=== PATIENT | female | born 1985 | race Caucasian/White ===

== ENCOUNTER 2019-07-29 18:09 | Emergency (ER) | payer SELFPAY ==
[~2019-07-29] VITALS: Ht 180.3 cm; Wt 127.0 kg
[2019-07-29 18:33] VITALS: BP 134/85
--- NOTE | 2019-07-29 18:53 | NUR ---
PT PRESENTED WITH C/O PAIN SWELLING OF THE L HAND RADIATING TO L ARM AND PAIN L ARM PIT X 1 WEEK, ALSO ABRASION TO RIGHT HEEL X 1.5 WEEKS. MONITORS APPLIED, SIDERAIL SUP X2, CALL LIGHT WITHIN REACH
[2019-07-29] MEDS ORDERED: METF500T17 PO (18:56)
[2019-07-29] MEDS ORDERED: ALPR0.25 PO (18:56)
[2019-07-29] MEDS ORDERED: GABA-827 PO (18:56)
[2019-07-29] MEDS ORDERED: HYDROcodone/APAP 5/325 TABLET ONE (19:08)
[2019-07-29] MEDS ORDERED: CEFAZOLIN 1,000 MG ONE (19:09)
[2019-07-29] MEDS ORDERED: LIDOCAINE-MPF 1%, 5ML ONE (19:09)
--- NOTE | 2019-07-29 19:21 | NUR ---
PT MEDICATED GA MAR
[2019-07-29] MEDS ORDERED: HYDROcodone/APAP 5/325 TABLET PO ONE (19:30)
[2019-07-29] MEDS ORDERED: LIDOCAINE 1%, 10ML INFIL ONE (19:30)
[2019-07-29] MEDS ORDERED: CEFAZOLIN 1,000 MG IM ONE (19:30)
--- NOTE | 2019-07-29 19:47 | NUR ---
DENTAL EQUIPMENT REPAIRER AT BEDSIDE TO APPLY DRSG
[2019-07-29] MEDS ORDERED: NEOSPORIN OINT. PKT 1 PACKET ONE (19:50)
== END 2019-07-29 20:09 | disposition home or self-care (01) ==
LOC: ED 19:04
DX: L03.012 Cellulitis of left finger (principal); F17.200 Nicotine dependence, unspecified, uncomplicated; Z88.1 Allergy status to other antibiotic agents; Z88.6 Allergy status to analgesic agent; Z88.5 Allergy status to narcotic agent
CPT/HCPCS: 10060; 96372; 99283; J0690

== ENCOUNTER 2019-08-24 11:39 | Emergency (ER) | payer SELFPAY ==
[~2019-08-24 11:39] MED LIST: ALPR0.25 PO; GABA-827 PO; METF500T17 PO
--- NOTE | 2019-08-24 13:57 | NUR ---
PER NOTE IN COMMENTS, PT CALLED X5 NO ANSWER
== END 2019-08-24 14:29 | disposition left against medical advice (07) ==
LOC: ED 14:20
DX: R07.9 Chest pain, unspecified (principal); Z53.21 Procedure and treatment not carried out due to patient leaving prior to being seen by health care provider

== ENCOUNTER 2019-09-03 15:29 | Emergency (ER) | payer OTHER ==
[~2019-09-03] VITALS: Ht 180.3 cm; Wt 119.2 kg
--- NOTE | 2019-09-03 15:51 | NUR ---
friend: [employer] [phone]
--- NOTE | 2019-09-03 16:23 | NUR ---
PATIENT COMING IN WITH CHIEF COMPLAINT OF "I'M JUST REALLY STRUGGLING MENTAL HEALTH AGGARWAL". PATIENT STATES THAT SHE MOVED TO [place] IN AND HAS BEEN OFF HER ANXIETY MEDICATIONS SINCE THEN AND SYMPTOMS HAVE GOTTEN WORSE. PATIENT STATES "I RESORTED TO USING METH AND THE H, AND SOMETIMES MARIJUANA. I ALSO DRINK EVERY DAY. IT'S HARD NOT TO WITH THE CASINOS". WHEN ASKED TO CLARIFY WHAT "H" IS, PATIENT STATES SHE USES HEROIN SOMETIMES. WHEN ASKED ABOUT MEDICAL HX, PATIENT STATES " I HAVE SPLEEN PROBLEMS, I HAVE TWO SPLEENS. I THINK I HAVE LIVER FAILURE, SOMETHING IS WRONG WITH MY KIDNEYS. I HAVE DIABETES, AND HEP C". PATIENT STATES HX OF "ANXIETY, DEPRESSION, BIPOLAR DISORDER, MULTIPLE PERSONALITY DISORDER, OCD, AND SCHIZOPHRENIA". PATIENT DENIES SI/HI. STATES "I JUST NEED TO GO BACK ON MY MEDS". TWO PATIENT BELONGINGS BAGS AND PATIENT'S PURSE PLACED IN LOCKED SAFE KEEPING WITH PATIENT LABELS ON. PATIENT REFUSES TO TAKE PANTS OFF TO PUT WITH BELONGINGS, STATES "I WILL ONLY TAKE THEM OFF IF THE DOCTOR ASKS ME, AND IF THEY'RE IN THE ROOM". PATIENT GIVEN WARM BLANKET, IN GOWN ASIDE FROM PANTS.
--- NOTE | 2019-09-03 16:29 | NUR ---
PATIENT STATES "I WANT TO KNOW IF YOU GUYS CAN DO A TEST ON ME, AND TEST WHAT DRUGS ARE ON ME". ATTEMPTED TO COLLECT URINE, PATIENT STATES "I CAN'T GO BECAUSE OF THE ANXIETY"
--- NOTE | 2019-09-03 16:37 | NUR ---
CATTLE DEHORNER TO ROOM
[2019-09-03] MEDS ORDERED: LORazepam 1MG TABLET ONE (16:48)
--- NOTE | 2019-09-03 16:54 | NUR ---
PATIENT MEDICATED PER EMAR, TOELRATED WELL. DENIES NEEDS AT THIS TIME.
[2019-09-03] MEDS ORDERED: LORazepam 1MG TABLET PO ONE (17:00)
--- NOTE | 2019-09-03 17:13 | NUR ---
SUPERVISOR HIDE HOUSE TO ROOM
--- NOTE | 2019-09-03 17:42 | NUR ---
PATIENT PROVIDED WITH SECOND URINE CUP, INSTRUCTED ON HOW TO CLEAN AREA AND OBTAIN CLEAN CATCH SPECIMEN
--- NOTE | 2019-09-03 17:49 | NUR ---
WHEN GOING IN TO COLLECT URINE, PATIENT STATES "I JUST DON'T THINK I CAN GO. I WANT TO SEE THE DOCTOR".
[2019-09-03 17:58] VITALS: BP 129/90
--- NOTE | 2019-09-03 17:59 | NUR ---
lab called and needs to re-draw pt
[2019-09-03 18:09] LABS: ANION GAP 10 mmol/L (5-15); CALCIUM 9.4 mg/dL (8.5-10.1); CHLORIDE 107 mmol/L (98-107)
[2019-09-03 18:11] LABS: SALICYLATE LEVEL < 1.7 mg/dL (2.8-20.0)
[2019-09-03 18:12] LABS: ALANINE AMINOTRANSFERASE 81 U/L (12-78); ALKALINE PHOSPHATASE 74 U/L (45-117); BILIRUBIN,TOTAL 0.6 mg/dL (0.2-1.0); CREATININE 0.73 mg/dL (0.55-1.02); TOTAL PROTEIN 8.2 g/dL (6.4-8.2)
[2019-09-03 18:44] LABS: BASOPHILS # (AUTO) 0.04 x10^3/uL (0-0.1); BASOPHILS % (AUTO) 1 % (0-1); EOSINOPHILS # (AUTO) 0.17 x10^3/uL (0-0.4); EOSINOPHILS % (AUTO) 2 % (1-7); LYMPHOCYTES # (AUTO) 2.87 x10^3/uL (1-3.4); LYMPHOCYTES % (AUTO) 31 % (22-44); MD NO; MEAN CORPUSCULAR HEMOGLOBIN 30.6 pg (27.0-34.8); MEAN CORPUSCULAR HGB CONC 33.5 g/dL (32.4-35.8); MEAN CORPUSCULAR VOLUME 91.3 fL (80-100); MEAN PLATELET VOLUME 8.5 fL (7.4-10.4); MONOCYTES # (AUTO) 0.74 x10^3/uL (0.2-0.8); MONOCYTES % (AUTO) 8 % (2-9); NEUTROPHILS # (AUTO) 5.39 x10^3/uL (1.8-6.8); NEUTROPHILS % (AUTO) 59 % (42-75); PLATELET COUNT 361 x10^3/uL (130-400); RED BLOOD COUNT 4.73 x10^6/uL (3.82-5.3); RED CELL DISTRIBUTION WIDTH 12.9 % (9.6-15.2)
--- NOTE | 2019-09-03 19:03 | NUR ---
BEDSIDE REPORT RECEIVED FROM RENATA SIM. CARE ASSUMED.
--- NOTE | 2019-09-03 19:23 | NUR ---
Patient/Caregiver given discharge instructions and they have confirmed that they understand the instructions. Patient ambulatory with steady gait.
--- NOTE | 2019-09-03 19:23 | NUR ---
PT HAS D/C ORDERS. THREE LABELLED BAGS OF BELONGINGS GIVEN TO PT.
== END 2019-09-03 19:27 | disposition home or self-care (01) ==
LOC: ED 17:42
DX: F41.1 Generalized anxiety disorder (principal); F42.8 Other obsessive-compulsive disorder; F20.9 Schizophrenia, unspecified
CPT/HCPCS: 36415; 80053; 80307; 84703; 85025; 99283

== ENCOUNTER 2019-09-11 02:43 | Emergency (ER) | payer SELFPAY ==
[~2019-09-11] VITALS: Ht 180.3 cm; Wt 117.0 kg
--- NOTE | 2019-09-11 02:59 | NUR ---
Patient has pain in the left armpit and flank which radiates to LLQ x4.5 hours. She has felt feverish. Patient is nauseous and vomited twice today. Patient states her hand has been changing colors, even in a warm house. Patient denies swelling or lesions. Patient appears anxious and slightly agitated. Respirations even and unlabored.
[2019-09-11 03:31] LABS: BASOPHILS # (AUTO) 0.03 x10^3/uL (0-0.1); BASOPHILS % (AUTO) 0 % (0-1); EOSINOPHILS # (AUTO) 0.14 x10^3/uL (0-0.4); EOSINOPHILS % (AUTO) 1 % (1-7); LYMPHOCYTES # (AUTO) 2.34 x10^3/uL (1-3.4); LYMPHOCYTES % (AUTO) 23 % (22-44); MD NO; MEAN CORPUSCULAR VOLUME 88.2 fL (80-100); MEAN PLATELET VOLUME 8.2 fL (7.4-10.4); MONOCYTES # (AUTO) 0.96 x10^3/uL (0.2-0.8); MONOCYTES % (AUTO) 10 % (2-9); NEUTROPHILS # (AUTO) 6.52 x10^3/uL (1.8-6.8); NEUTROPHILS % (AUTO) 65 % (42-75); PLATELET COUNT 289 x10^3/uL (130-400); RED BLOOD COUNT 4.83 x10^6/uL (3.82-5.3); RED CELL DISTRIBUTION WIDTH 13.1 % (9.6-15.2)
[2019-09-11 03:42] LABS: ALANINE AMINOTRANSFERASE 109 U/L (12-78); ALBUMIN 4.1 g/dL (3.4-5.0); ANION GAP 11 mmol/L (5-15); CHLORIDE 106 mmol/L (98-107); CREATININE 0.69 mg/dL (0.55-1.02)
[2019-09-11 03:45] LABS: ALKALINE PHOSPHATASE 83 U/L (45-117); BILIRUBIN,TOTAL 1.5 mg/dL (0.2-1.0); TOTAL PROTEIN 8.4 g/dL (6.4-8.2)
[2019-09-11] MEDS ORDERED: DICYCLOMINE 20 MG TABLET PO ONE (04:00)
[2019-09-11] MEDS ORDERED: ONDANSETRON ODT 4 MG PO ONE (04:00)
[2019-09-11] MEDS ORDERED: ONDANSETRON ODT 4 MG ONE (04:01)
[2019-09-11] MEDS ORDERED: DICYCLOMINE 20 MG TABLET ONE (04:02)
[2019-09-11 04:06] LABS: CULTURE INDICATED? YES; HCG UR SG 1.031 (1.003-1.030); MICROSCOPIC INDICATED
[2019-09-11 04:16] LABS: AMPHETAMINE SCREEN, URINE Positive (Negative); BARBITURATE SCREEN, URINE Negative (Negative); BENZODIAZEPINE SCREEN, URINE Negative (Negative); CANNABINOID SCREEN, URINE Positive (Negative); COCAINE SCREEN, URINE Positive (Negative); METHADONE SCREEN, URINE Negative (Negative); OPIATE SCREEN, URINE Negative (Negative)
[2019-09-11] MEDS ORDERED: MAALOX/HYOSCYAMINE/LIDOCAINE 45 ML BTL ONE (04:25)
[2019-09-11 04:28] VITALS: BP 124/62
[2019-09-11] MEDS ORDERED: MAALOX/HYOSCYAMINE/LIDOCAINE 45 ML BTL PO ONE (04:30)
--- NOTE | 2019-09-11 04:33 | NUR ---
Medication administered per nov. Discharge instructions given to Pt. All questions and concerns addressed. Patient ambulatory with a steady gait. Belongings with patient.
== END 2019-09-11 04:37 ==
LOC: ED 03:28
DX: K29.00 Acute gastritis without bleeding (principal); F10.129 Alcohol abuse with intoxication, unspecified; F12.129 Cannabis abuse with intoxication, unspecified; F15.129 Other stimulant abuse with intoxication, unspecified; F17.200 Nicotine dependence, unspecified, uncomplicated; Z72.9 Problem related to lifestyle, unspecified; Z91.14 Patient's other noncompliance with medication regimen; Z63.8 Other specified problems related to primary support group
CPT/HCPCS: 36415; 80053; 80307; 81001; 81025; 83690; 85025; 87086; 99284; Q0162

== ENCOUNTER 2019-09-13 06:28 | Emergency (ER) | payer OTHER ==
[~2019-09-13] VITALS: Ht 180.3 cm; Wt 120.5 kg
[2019-09-13 06:32] VITALS: BP 177/83
--- NOTE | 2019-09-13 06:48 | NUR ---
RECEIVED REPORT FROM ALEJANDRO. PT UPRIGHT ON GURNEY AWAKE & CALM, RESPONDS TO STAFF QUESTIONS BUT FREQ RAMBLES OFF TOPIC, NAD, COMFORT MEASURES PROVIDED, CALL LIGHT WITHIN REACH.
[2019-09-13] MEDS ORDERED: LORazepam 1MG TABLET PO ONE (07:30)
--- NOTE | 2019-09-13 07:41 | NUR ---
PT REFUSING LABS AFER MULT ATTEMPTS & DEMANDING "WATER, COFFEE & PSYCH MEDS RIGHT NOW"- PA SHARMILA AWARE, PT DEMANDING TO BE PLACED ON MEDICAL HOLD "BECAUSE I KNOW MY RIGHTS, I WANT A PHONE IN HERE RIGHT NOW SO I CAN CALL THE FEDERAL AUTHORITIES TO REPORT THIS HOSPITAL", PT WOULD NOT STATE HER COMPLAINTS EXCEPT THAT WE "NEED TO X-RAY MY FOOT & I'M IN PAIN FROM THE LAST TIME YOU GUYS ROSAURA BLOOD, I HAVE BRUISES ALL OVER MY ARM FROM IT.", NO BRUISING NOTED TO BUE & PT OFTEN AMBULATING STEADILY IN ROOM. PT REFUSED TO COOPERATE WITH STAFF AND REFUSED TO LEAVE WHEN DC'D BY PA, PT ESCORTED TO EXIT BY SECURITY STATING "YOU GUYS BETTER CALL [employer] BECAUSE I'M GOING TO BUST EVERY WINDOW OUT IN THE PARKING LOT!"
== END 2019-09-13 07:50 | disposition home or self-care (01) ==
LOC: ED 07:39
DX: F43.9 Reaction to severe stress, unspecified (principal); F15.90 Other stimulant use, unspecified, uncomplicated; F12.10 Cannabis abuse, uncomplicated; F14.90 Cocaine use, unspecified, uncomplicated; Z72.89 Other problems related to lifestyle; Z72.9 Problem related to lifestyle, unspecified
CPT/HCPCS: 99281

== ENCOUNTER 2019-11-21 20:45 | Emergency (ER) | payer SELFPAY ==
[~2019-11-21] VITALS: Ht 180.3 cm; Wt 113.0 kg
[2019-11-21 20:48] VITALS: BP 146/84
--- NOTE | 2019-11-21 21:03 | NUR ---
UPON ENTERING ROOM PT STATES SHE IS VERY UPSET. PT STATES "THIS IS RIDICULOUS THAT YOU DON'T HAVE PHONES IN THE ROOM. IT IS MY RIGHT TO CALL MY EMERGENCY CONTACT." PT ASSURED SHE CAN USE THE PHONE AT THE NURSES STATION. PT STATES "NO I NEED ONE IN MY ROOM." PT EDUCATED THAT THERE ARE NO PHONES IN ANY OF THE ROOMS. PT DECLINES TO ANSWER ANY CLINICAL OR ASSESSMENT QUESTIONS AND SITS ON BED REFUSING TO TALK TO NURSE.
--- NOTE | 2019-11-21 21:58 | NUR ---
PT REFUSED LAB DRAW AT THIS TIME. LAB NOTIFIED AND ANOTHER TECH TO TRY TO DRAW.
== END 2019-11-21 22:15 | disposition left against medical advice (07) ==
LOC: ED 22:05
DX: M79.662 Pain in left lower leg (principal); E11.9 Type 2 diabetes mellitus without complications
CPT/HCPCS: 99281

== ENCOUNTER 2019-11-22 00:32 | Emergency (ER) | payer OTHER ==
[~2019-11-22] VITALS: Ht 180.3 cm; Wt 112.9 kg
[2019-11-22 00:35] VITALS: BP 132/71
[2019-11-22] MEDS ORDERED: NEOSPORIN OINT. PKT 1 PACKET ONE (00:59)
[2019-11-22] MEDS ORDERED: HYDROcodone/APAP 5/325 TABLET ONE (00:59)
[2019-11-22] MEDS ORDERED: BACITRACIN OINT 500U/GM, 28GM TP ONE (01:00)
[2019-11-22] MEDS ORDERED: HYDROcodone/APAP 5/325 TABLET PO ONE (01:00)
--- NOTE | 2019-11-22 04:49 | NUR ---
ERGONOMIST: SEE PAPER CHARTING FOR DOWNTIME.
== END 2019-11-22 04:50 ==
LOC: ED 00:43
DX: M79.671 Pain in right foot (principal); E66.01 Morbid (severe) obesity due to excess calories; E11.40 Type 2 diabetes mellitus with diabetic neuropathy, unspecified; L03.031 Cellulitis of right toe; Z72.9 Problem related to lifestyle, unspecified; Z68.34 Body mass index [BMI] 34.0-34.9, adult
CPT/HCPCS: 99283